=== PATIENT | female | born 1980 ===

== ENCOUNTER → 2019-03-27 | Outpatient (CLI) | payer OTHER ==
--- NOTE | 2019-03-27 13:51 | Diagnostic Imaging Report ---
INDICATION: Screening. TECHNIQUE: Bilateral CC and MLO 3D mammography was performed. The current study was also evaluated with a Computer Aided Detection (CAD) system. COMPARISON: No prior examinations are available for comparison. FINDINGS: There has been bilateral breast augmentation with implants. There are scattered fibroglandular densities bilaterally. There is no dominant mass, spiculated lesion, or suspicious calcifications identified. The skin, nipples, and axillae are unremarkable. IMPRESSION: Benign findings. ACR BI-RADS Category 2: Benign findings. Result letter will be mailed to the patient. Note: At least 10% of breast cancer is not imaged by mammography. Dictated by: Dictated on workstation # [id number]
== END ==
LOC: RAD 13:01
PROVIDERS: ATTEND Nurse Practitioner Primary Care
DX: N63.0 Unspecified lump in unspecified breast (principal); N64.4 Mastodynia; Z98.82 Breast implant status
CPT/HCPCS: 77066

== ENCOUNTER → 2019-05-01 | Outpatient (CLI) | payer OTHER ==
--- NOTE | 2019-05-01 19:06 | Diagnostic Imaging Report ---
CLINICAL INDICATION: Patient with dysfunctional uterine bleeding. EXAM: Transabdominal and transvaginal ultrasound of the pelvis. COMPARISON: None. FINDINGS: The uterus has normal echogenicity and configuration. The uterus measures 8.0 cm x 5.2 cm x 4.3 cm. Endometrial is near upper limits of normal measuring 1.4 cm, but is not significantly heterogeneous. The right and left ovaries have normal configuration with follicular cysts seen. The largest cyst measures 1.2 cm and is within the right ovary. Both ovaries otherwise have normal spectral Doppler waveform and Doppler flow. The right and left ovaries measure 2.9 cm x 3.0 cm x 1.4 cm and 2.7 cm x 2.4 cm x 2.1 cm. There is minimal free fluid in the pelvis which may be physiologic. IMPRESSION: Upper limits of normal endometrial stripe of 1.4 cm. Otherwise, unremarkable ultrasound of the pelvis. Dictated on workstation # [id number]
== END ==
LOC: RAD 13:52
PROVIDERS: ATTEND Obstetrics & Gynecology
DX: N93.8 Other specified abnormal uterine and vaginal bleeding (principal)
CPT/HCPCS: 76830; 76856